=== PATIENT | male | born 1975 ===

== ENCOUNTER → 2020-11-11 | Outpatient (CLI) | payer BC ==
--- NOTE | 2020-11-11 16:57 | Diagnostic Imaging Report ---
EXAMINATION: Left hand at 4:12 PM. INDICATION: Hand pain. TECHNIQUE/COMPARISON: Three views were obtained. There are no prior studies available for comparison. FINDINGS: There is no fracture, dislocation, or acute bony abnormality evident. The soft tissues are unremarkable. In particular, there is no sign of a radiopaque metallic foreign body. IMPRESSION: There is no evidence for an acute bony abnormality. There is no radiopaque metallic foreign body identified either. Dictated by: Dictated on workstation # [id number]
--- NOTE | 2020-11-11 18:36 | Diagnostic Imaging Report ---
PROCEDURE: MRI lumbar spine. TECHNIQUE: Multiplanar, multisequence MRI of the lumbar spine was performed without contrast. INDICATION: Back pain. FINDINGS: The alignment is normal. The vertebral body heights are well maintained. There is no spondylolysis or spondylolisthesis. No fracture is identified. Conus medullaris is seen at L1 and is normal in appearance. At T12-L1 there is no spinal or neural foraminal encroachment. At L1-L2 there is no spinal or neural foraminal encroachment. At L2-L3 there is no spinal stenosis. There is mild neural foraminal encroachment, left greater than right. At L3-L4 there is mild facet disease. There is no spinal stenosis. There is no neural foraminal encroachment. At L4-L5 there is some annular bulging with mild encroachment upon the lateral recess, bilaterally. There is some facet disease. There is moderate spinal stenosis, bilaterally. At L5-S1 there is annular bulging and encroachment upon the lateral recess, bilaterally. There is minimal spinal stenosis with moderate bilateral neural foraminal encroachment. The aorta is nonaneurysmal. There is no other focal soft tissue abnormality. IMPRESSION: Lower lumbar spondylosis and degenerative disc disease as described. Dictated by: Dictated on workstation # [id number]
== END ==
LOC: RAD 15:30
PROVIDERS: ATTEND Family Medicine
DX: M47.816 Spondylosis without myelopathy or radiculopathy, lumbar region (principal); M51.26 Other intervertebral disc displacement, lumbar region; M51.27 Other intervertebral disc displacement, lumbosacral region; M51.36 Other intervertebral disc degeneration, lumbar region; M48.061 Spinal stenosis, lumbar region without neurogenic claudication; M48.07 Spinal stenosis, lumbosacral region
CPT/HCPCS: 72148; 73130